=== PATIENT | female | born 1940 | race Caucasian/White ===

== ENCOUNTER 2021-10-03 08:08 | Day surgery (SDC) | payer MEDICARE, OTHER ==
[~2021-10-03] VITALS: Ht 157.5 cm; Wt 70.5 kg
[~2021-10-03 08:08] MED LIST: AMLO10 PO; ATOR20; AVALIDE 300-121 EACH PO; Crestor20 MG PO; FENO54; FLONASE ALLERG9.9 M2; HCTZ 25MG; HYDACE5 PO; HYDCHL25; LISI20; LORA.5; LORA10ER PO; METF500 PO; NEBI5 PO; OMEP20ER PO; POTASSIUM99 M3 PO; RXONDA4ODT MM; RXSULTRIDS PO; SULTRIDS PO; TRADJENTA5 MG PO; ZESTRIL40 M1 PO
== END 2021-10-03 11:06 | disposition home or self-care (01) ==
LOC: ORSCSDS 08:08
PROVIDERS: Ophthalmology
PROC: 08RJ3JZ Replacement of Right Lens with Synthetic Substitute, Percutaneous Approach (ICD-10-PCS; principal; 2021-10-03 09:30)
DX: H25.13 Age-related nuclear cataract, bilateral (principal); I10 Essential (primary) hypertension; K21.9 Gastro-esophageal reflux disease without esophagitis; E11.9 Type 2 diabetes mellitus without complications; Z79.899 Other long term (current) drug therapy
CPT/HCPCS: 82947; J2001; J2250; J3010; J3301; J7040; V2632

== ENCOUNTER 2021-11-07 08:10 | Day surgery (SDC) | payer MEDICARE, OTHER ==
[~2021-11-07] VITALS: Ht 157.5 cm; Wt 70.5 kg
== END 2021-11-07 10:40 | disposition home or self-care (01) ==
LOC: ORSCSDS 08:10
PROVIDERS: Ophthalmology
PROC: 08RK3JZ Replacement of Left Lens with Synthetic Substitute, Percutaneous Approach (ICD-10-PCS; principal; 2021-11-07 09:30)
DX: H25.12 Age-related nuclear cataract, left eye (principal); I10 Essential (primary) hypertension; E78.5 Hyperlipidemia, unspecified; J45.909 Unspecified asthma, uncomplicated; Z79.84 Long term (current) use of oral hypoglycemic drugs; Z79.899 Other long term (current) drug therapy; E11.36 Type 2 diabetes mellitus with diabetic cataract
CPT/HCPCS: 82947; J2001; J2250; J3010; J3301; J7040; V2632

== ENCOUNTER → 2024-11-01 | Outpatient (CLI) | payer MEDICARE, OTHER ==
[2024-11-01 15:52] LABS: Creatinine, Urine Random 69.4 mg/dL (27.00-270.00); Microalb/Creat Ratio UR, Rand 37.464 mg/g (0.000-30.000)
== END ==
LOC: LAB 11:50 → LAB SHORT 11:50
PROVIDERS: Internal Medicine
DX: E11.69 Type 2 diabetes mellitus with other specified complication (principal); I25.10 Atherosclerotic heart disease of native coronary artery without angina pectoris
CPT/HCPCS: 82043; 82570